=== PATIENT | female | born 1995 | race Caucasian/White ===

== ENCOUNTER → 2017-11-04 | Outpatient (CLI) | payer OTHER ==
[~2017-11-04] MED LIST: CYCL10 PO; HYDACE5325 PO; IBUP800 PO
[2017-11-05 09:25] LABS: Candida species (DNA Probe) Positive (NEGATIVE); G. vaginalis (DNA Probe) Negative (NEGATIVE); T. vaginalis (DNA Probe) Negative (NEGATIVE)
== END ==
LOC: LAB SHORT 14:53 → LAB 14:53
PROVIDERS: Advanced Practice Midwife
DX: Z34.00 Encounter for supervision of normal first pregnancy, unspecified trimester (principal); B37.9 Candidiasis, unspecified
CPT/HCPCS: 87480; 87510; 87660

== ENCOUNTER → 2017-12-08 | Outpatient (CLI) | payer OTHER ==
[2017-12-15 20:07] LABS: AFP MOM 0.62 (.); AFP VALUE 27.1 ng/mL (.); DIA MOM 1.18 (.); DIA VALUE 186.27 pg/mL (.); DSR (BY AGE) 1 IN 1056 (.); DSR (SECOND TRIMESTER) 1 IN 528 (.); GEST. AGE ON COLLECTION DATE 19.1 WEEKS (.); HCG MOM 1.64 (.); HCG VALUE 35758 mIU/mL (.); INSULIN DEP DIABETES No (.); MATERNAL AGE AT EDD 24.4 yr (.); MULTIPLE GESTATION No (.); OSBR RISK 1 IN 10000 (.); RACE Caucasian (.); RESULTS Report (.); T18 RISK Not increased (.); TEST RESULTS: *Screen Negative* (.); UE3 MOM 0.73 (.); UE3 VALUE 1.07 ng/mL (.); WEIGHT 184 lbs (.)
== END | disposition home or self-care (01) ==
LOC: LAB 13:50 → LAB SHORT 13:50
PROVIDERS: Advanced Practice Midwife
DX: Z34.02 Encounter for supervision of normal first pregnancy, second trimester (principal); Z3A.17 17 weeks gestation of pregnancy
CPT/HCPCS: 82105; 82677; 84702; 86336

== ENCOUNTER → 2018-04-21 | Outpatient (CLI) | payer OTHER ==
[~2018-04-21] MED LIST changes: +IRON 100 PLUS1 EACH PO; +PROM25; +SERT25 PO; +Verotin-Gr Cap1 EACH PO
== END | disposition home or self-care (01) ==
LOC: LAB SHORT 15:57 → LAB 15:57
DX: Z34.00 Encounter for supervision of normal first pregnancy, unspecified trimester (principal)
CPT/HCPCS: 87081; 87653

== ENCOUNTER → 2018-07-23 | Outpatient (CLI) | payer OTHER ==
[2018-07-23 13:46] LABS: Candida species (DNA Probe) Negative (NEGATIVE); G. vaginalis (DNA Probe) Negative (NEGATIVE); T. vaginalis (DNA Probe) Negative (NEGATIVE)
[2018-07-25 02:11] LABS: CHLAMYDIA TRACHOMATIS, NAA Negative (Negative); NEISSERIA GONORRHOEAE, NAA Negative (Negative)
== END | disposition home or self-care (01) ==
LOC: LAB SHORT 09:05 → LAB 09:05
PROVIDERS: Advanced Practice Midwife
DX: Z11.3 Encounter for screening for infections with a predominantly sexual mode of transmission (principal); N76.0 Acute vaginitis
CPT/HCPCS: 87480; 87491; 87510; 87591; 87660